=== PATIENT | female | born 1945 | race Caucasian/White ===

== ENCOUNTER 2020-07-10 09:16 | Emergency (ER) | payer MEDICARE ==
[2020-07-10] MEDS ORDERED: Dextrose 50% Abboject 50 ML SYRINGE ONE (09:29)
[2020-07-10 09:47] LABS: #Lymphocytes 0.8 thou/uL (1.20-3.40); #Monocytes 0.8 thou/uL (0.11-0.59); #Neutrophils 5.8 thou/uL (1.40-6.50); %Basophils 0.4 % (0.0-1.0); %Lymphocytes 10.9 % (21.0-51.0); %Monocytes 10.6 % (0.0-10.0); %Neutrophils 78.2 % (42.0-75.0); Hemoglobin 11.1 g/dL (12.0-16.0); Mean Corpuscular HGB CONC 32.1 g/dL (32.0-36.0); Mean Corpuscular Hemoglobin 29.1 pg (27.0-31.0); Mean Corpuscular Volume 90.7 fL (78.0-98.0); Mean Platelet Volume 7.1 fL (7.4-10.4); Platelet Count 238 thou/uL (130-400); RBC Distribution Width 12.4 % (11.5-14.5); Red Blood Cell (RBC) Count 3.83 mill/uL (4.20-5.40); White Blood Cell (WBC) Count 7.4 thou/uL (4.8-10.8)
[2020-07-10 09:54] LABS: Bilirubin Negative (Negative); Blood, Urine Trace (Negative); Clarity Cloudy (Clear); Glucose, Urine (Dipstick) Negative (Negative); Ketone, Urine 15 mg/dL (Negative); Leukocyte Negative (Negative); Nitrite Negative (Negative); Protein, Urine (Dipstick) > or equal to 300 mg/dL (Neg-Trace); Specific Gravity, Urine 1.025 (1.005-1.030); Urobilinogen 0.2 mg/dL (Less than 2); pH, Urine 5.5 (5.0-9.0)
[2020-07-10 10:00] LABS: RBC/HPF 0-3 HPF (0-3)
[2020-07-10 10:01] LABS: Bacteria/HPF Rare-Few HPF (None Seen); Squamous Epithelial 0-3 HPF (0-3)
[2020-07-10 10:04] LABS: ALT (SGPT) 11 U/L (8-55); AST (SGOT) 20 U/L (5-34); Albumin 2.9 g/dL (3.4-4.8); Alkaline Phosphatase 49 U/L (40-110); Anion Gap 18 mmol/L (10-20); BUN (Urea Nitrogen) 33 mg/dL (9.8-20.1); Bilirubin, Total 0.3 mg/dL (0.2-1.2); Calc. Creatinine Clearance 0 mL/min (70-130); Calcium 7.4 mg/dL (7.8-10.44); Carbon Dioxide 17 mmol/L (23-31); Chloride 106 mmol/L (98-107); Estimated GFR-MDRD 36; Globulin 2.3 g/dL (2.4-3.5); Glucose 268 mg/dL (83-110); Potassium 4.1 mmol/L (3.5-5.1); Protein, Total 5.2 g/dL (6.0-8.3); Sodium 137 mmol/L (136-145)
[2020-07-10 10:20] LABS: CKMB 1.4 ng/mL (0-6.6)
[2020-07-10] MEDS ORDERED: Lisinopril 20 MG TAB ONE (10:42)
[2020-07-10] MEDS ORDERED: Metoprolol Tartrate 5 MG/5 ML VIAL ONE (10:42)
--- NOTE | 2020-07-10 12:00 | RAD ---
CHEST 1 VIEW: Date: 07/10/2020 INDICATION: Altered mental status. COMPARISON: Prior exam dated 03/31/2013. FINDINGS: No consolidation is evident. Mild cardiomegaly is stable. Vascular calcification of aortic arch is si milar appearing. Scarring within the lingula is stable appearing. Chronic osseous changes are stable. IMPRESSION: No acute abnormality. POS: [facility]
[2020-07-10] MEDS ORDERED: Acetaminophen 500 MG TAB ONE (12:18)
== END 2020-07-10 12:29 | disposition short-term general hospital (02) ==
LOC: NAV ERS 09:16
DX: E11.649 Type 2 diabetes mellitus with hypoglycemia without coma (principal); U07.1 COVID-19; I10 Essential (primary) hypertension; R00.0 Tachycardia, unspecified; K21.9 Gastro-esophageal reflux disease without esophagitis; G35 Multiple sclerosis; Z79.84 Long term (current) use of oral hypoglycemic drugs; Z79.899 Other long term (current) drug therapy
CPT/HCPCS: 36416; 51701; 71045; 80053; 81003; 81015; 82553; 83605; 84484; 85025; 93005; 96374; 96375

== ENCOUNTER 2020-08-24 19:25 | Inpatient (IN) | payer MEDICARE ==
[2020-08-24] MEDS ORDERED: Nitroglycerin 0.4 MG TAB (25 Tab Bottle) SL PRN (21:35)
[2020-08-24] MEDS ORDERED: Ondansetron ODT 4 MG TAB PO PRN (21:35)
[2020-08-25 05:51] LABS: Band 4 % (5-11); Crenated RBC SLIGHT = 1-5 cells (100X) (None Seen); Hemoglobin 9.3 g/dL (12.0-16.0); Lymphocytes 10 % (21-51); MDiff Complete? YES; Mean Corpuscular Hemoglobin 30.3 pg (27.0-31.0); Mean Platelet Volume 7.1 fL (7.4-10.4); Microcytosis MODERATE=15-30 cells (100X) (0-5/hpf); Monocytes 8 % (0-10); Neutrophil 76 % (42-75); Platelet Count 215 thou/uL (130-400); Platelet Morphology Comment Appears Adequate; Poikilocytosis MODERATE=16-30 cells (100X) (0-5/hpf); RBC Distribution Width 14.3 % (11.5-14.5); Reactive Lymphocytes 2 % (0-10); Red Blood Cell (RBC) Count 3.06 mill/uL (4.20-5.40); Spherocytes SLIGHT = 1-5 cells (100X) (None Seen); White Blood Cell (WBC) Count 8.4 thou/uL (4.8-10.8)
[2020-08-25 05:55] LABS: ALT (SGPT) 12 U/L (8-55); AST (SGOT) 9 U/L (5-34); Albumin 2.7 g/dL (3.4-4.8); Alkaline Phosphatase 78 U/L (40-110); Anion Gap 12 mmol/L (10-20); BUN (Urea Nitrogen) 12 mg/dL (9.8-20.1); Bilirubin, Total 0.3 mg/dL (0.2-1.2); Calc. Creatinine Clearance 49 mL/min (70-130); Calcium 7.8 mg/dL (7.8-10.44); Carbon Dioxide 28 mmol/L (23-31); Chloride 103 mmol/L (98-107); Globulin 2.5 g/dL (2.4-3.5); Glucose 231 mg/dL (83-110); Potassium 3.4 mmol/L (3.5-5.1); Protein, Total 5.2 g/dL (6.0-8.3); Sodium 140 mmol/L (136-145)
[2020-08-25] MEDS ORDERED: Dextrose 50% Abboject 50 ML SYRINGE SLOW IVP PRN (07:34)
[2020-08-25] MEDS: metFORMIN 500 MG TAB PO SCH ×2 (08:23→16:10)
[2020-08-25] MEDS: Amlodipine 5 MG TAB PO SCH (08:23)
[2020-08-25] MEDS: Furosemide 40 MG TAB PO SCH (08:23)
[2020-08-25] MEDS: Lidocaine 5% Patch TD SCH (08:23)
[2020-08-25] MEDS: Glimepiride 2 MG TAB PO SCH ×2 (08:24→16:10)
[2020-08-25] MEDS: Docusate 100 MG CAP PO SCH ×2 (08:24→20:23)
[2020-08-25] MEDS: Losartan 25 MG TAB PO SCH (08:24)
[2020-08-25] MEDS: Apixaban 2.5 MG TAB PO SCH ×2 (08:24→20:23)
[2020-08-25] MEDS: Aspirin Chewable 81 MG TAB PO SCH (08:24)
[2020-08-25] MEDS ORDERED: FLU VACC QS2020-21(65YR UP)/PF 240 MCG/0.7 ML SYRINGE IM ONE (09:00)
[2020-08-25] MEDS ORDERED: Apixaban 2.5 MG TAB PO SCH (09:00)
[2020-08-25] MEDS ORDERED: Metoprolol Tartrate 50 MG TAB PO SCH (09:00)
[2020-08-25] MEDS ORDERED: Non-Formulary Item 1 EACH (Amlodipine [Norvasc] 10 MG Tab) PO SCH (09:00)
[2020-08-25] MEDS: HumaLOG 300 UNITS/3 ML VIAL SC PRN ×2 (11:44→16:14)
[2020-08-25] MEDS: Acetaminophen 325 MG TAB PO PRN (16:09)
[2020-08-25] MEDS: Metoprolol Tartrate 50 MG TAB PO SCH (20:24)
[2020-08-25] MEDS: Atorvastatin Calcium 40 MG TAB PO SCH (20:24)
[2020-08-25] MEDS: Lidocaine Patch Removal 1 EACH TOP SCH (20:25)
[2020-08-26] MEDS: Losartan 25 MG TAB PO SCH (09:40)
[2020-08-26] MEDS: metFORMIN 500 MG TAB PO SCH ×2 (09:44→17:49)
[2020-08-26] MEDS: Aspirin Chewable 81 MG TAB PO SCH (09:45)
[2020-08-26] MEDS: Amlodipine 5 MG TAB PO SCH (09:45)
[2020-08-26] MEDS: Apixaban 2.5 MG TAB PO SCH ×2 (09:45→21:07)
[2020-08-26] MEDS: Glimepiride 2 MG TAB PO SCH ×2 (09:45→17:49)
[2020-08-26] MEDS: Metoprolol Tartrate 50 MG TAB PO SCH ×2 (09:46→21:07)
[2020-08-26] MEDS: Furosemide 40 MG TAB PO SCH (09:46)
[2020-08-26] MEDS: Lidocaine 5% Patch TD SCH (09:47)
[2020-08-26] MEDS: Docusate 100 MG CAP PO SCH ×2 (09:47→21:07)
[2020-08-26] MEDS: HumaLOG 300 UNITS/3 ML VIAL SC PRN (11:51)
--- NOTE | 2020-08-26 20:02 | PRG ---
DATE OF SERVICE: 08/25/2020 SUBJECTIVE: The patient is sitting up in bed, eating. No complaints of shortness of breath, weakness, or cough, only complaining of soreness in her chest in the site of CPR. She feels she is ready for therapy today and has been evaluated with no chest pain or shortness of breath. OBJECTIVE: VITAL SIGNS: Temperature is 97, pulse 104, respirations 20, O2 sats 96% on 2 L, and blood pressure 166/75. LUNGS: Clear, only few crackles in the bases. CARDIAC: Showed regular rhythm. No gallops or murmurs. ABDOMEN: Soft and nontender with no masses or organomegaly. SKIN/EXTREMITIES: Showed no edema, clubbing, or cyanosis. LABORATORY DATA: Shows white count 8400, hematocrit 28, and hemoglobin 9. Sodium 140, potassium 3.4, chloride 103, bicarb 28, BUN 12, creatinine 0.9, glucose 231, protein 5.2, and albumin 2.7. ASSESSMENT: 1. Peripheral vascular disease status post cardiac arrest with combined systolic and diastolic heart failure stabilizing on medications and will continue to monitor and titrate blood pressure control. Monitor for any significant arrhythmias or shortness of breath during therapy. 2. Type 2 diabetes, on prehospitalization medications plus sliding scale with only fair control. We will monitor and may need to titrate up, although does appear to be improving since admission. 3. Multiple sclerosis, chronic and stable, but debilitating and may limit therapy or monitor closely. 4. Possible aspiration pneumonia. Appears to be eating well, but will get speech therapy. Job ID: [id number]
[2020-08-26] MEDS: Atorvastatin Calcium 40 MG TAB PO SCH (21:06)
[2020-08-26] MEDS: Acetaminophen 325 MG TAB PO PRN (21:08)
[2020-08-26] MEDS: Lidocaine Patch Removal 1 EACH TOP SCH (21:09)
[2020-08-27] MEDS: Lidocaine 5% Patch TD SCH (08:22)
[2020-08-27] MEDS: Amlodipine 5 MG TAB PO SCH (08:24)
[2020-08-27] MEDS: Furosemide 40 MG TAB PO SCH (08:24)
[2020-08-27] MEDS: metFORMIN 500 MG TAB PO SCH ×2 (08:24→17:09)
[2020-08-27] MEDS: Glimepiride 2 MG TAB PO SCH ×2 (08:24→17:08)
[2020-08-27] MEDS: Metoprolol Tartrate 50 MG TAB PO SCH ×2 (08:25→21:11)
[2020-08-27] MEDS: Aspirin Chewable 81 MG TAB PO SCH (08:25)
[2020-08-27] MEDS: Apixaban 2.5 MG TAB PO SCH ×2 (08:25→21:11)
[2020-08-27] MEDS: Docusate 100 MG CAP PO SCH ×2 (08:30→21:12)
[2020-08-27] MEDS: Losartan 25 MG TAB PO SCH (08:30)
--- NOTE | 2020-08-27 20:02 | PRG ---
DATE OF SERVICE: 08/26/2020 SUBJECTIVE: Ms. Hutchison just returning from therapy. She is ambulating with the help of a walker. She denies any questions or concerns. No family at bedside. OBJECTIVE: VITAL SIGNS: She is afebrile, heart rate 98, respirations 18, oxygen saturation 99% on 2 L, blood pressure 161/77. CARDIOVASCULAR SYSTEM: S1, S2 plus. RESPIRATORY SYSTEM: Normal vesicular breath sounds with crackles in the bases. ABDOMEN: Soft, nontender. EXTREMITIES: Without cyanosis, clubbing. Trace edema. CENTRAL NERVOUS SYSTEM: Generalized weakness. IMPRESSION: 1. Peripheral vascular disease. 2. Chronic combined congestive heart failure. 3. Diabetes mellitus type 2. 4. Multiple sclerosis. 5. Deconditioning. PLAN: 1. Continue current medications. 2. 1800 calorie heart healthy ADA diet. 3. Blood sugars are 112 and 141. 4. Accu-Cheks with sliding scale coverage. 5. Monitor blood pressure and adjust medications as needed. 6. Physical therapy. 7. Routine laboratory values. Job ID: [id number]
[2020-08-27] MEDS: Atorvastatin Calcium 40 MG TAB PO SCH (21:11)
[2020-08-27] MEDS: Lidocaine Patch Removal 1 EACH TOP SCH (21:12)
[2020-08-28] MEDS: Amlodipine 5 MG TAB PO SCH (08:13)
[2020-08-28] MEDS: Furosemide 40 MG TAB PO SCH (08:13)
[2020-08-28] MEDS: metFORMIN 500 MG TAB PO SCH ×2 (08:13→17:03)
[2020-08-28] MEDS: Glimepiride 2 MG TAB PO SCH (08:13)
[2020-08-28] MEDS: Apixaban 2.5 MG TAB PO SCH ×2 (08:14→20:25)
[2020-08-28] MEDS: Losartan 25 MG TAB PO SCH (08:15)
[2020-08-28] MEDS: Docusate 100 MG CAP PO SCH ×2 (08:15→20:24)
[2020-08-28] MEDS: Lidocaine 5% Patch TD SCH (08:15)
[2020-08-28] MEDS: Aspirin Chewable 81 MG TAB PO SCH (08:15)
[2020-08-28] MEDS: Metoprolol Tartrate 50 MG TAB PO SCH ×2 (08:16→20:23)
[2020-08-28] MEDS: Acetaminophen 325 MG TAB PO PRN (08:17)
--- NOTE | 2020-08-28 10:05 | RAD ---
PORTABLE FRONTAL CHEST RADIOGRAPH: DATE: 08/28/2020. COMPARISON: 08/18/2020. HISTORY: Productive cough. FINDINGS: There is nonspecific mild linear increased density within the right lung base in the region of the co stophrenic angle. There is nonspecific focal pleural and parenchymal opacity within the left lung ba se which has improved when compared to 08/18/2020. No pneumothorax is seen. Previously noted left-s ided vascular catheter has been removed. IMPRESSION: There is increased density in both lung bases, left greater than right, suggesting mild airspace dise ase and pleural fluid, particularly on the left. This has improved when compared to 08/18/2020 but s ignificant residual pleural and parenchymal opacity is noted in the left base. Etiology is uncertain . This could be related to infectious pneumonitis, aspiration, etc. Followup to resolution is advis ed to exclude an underlying left basilar pulmonary mass. POS: [facility]
[2020-08-28] MEDS: HumaLOG 300 UNITS/3 ML VIAL SC PRN (11:37)
[2020-08-28] MEDS: Atorvastatin Calcium 40 MG TAB PO SCH (20:26)
[2020-08-28] MEDS: Lidocaine Patch Removal 1 EACH TOP SCH (20:29)
[2020-08-29] MEDS: Docusate 100 MG CAP PO SCH (07:56)
[2020-08-29] MEDS: Losartan 25 MG TAB PO SCH (07:57)
[2020-08-29] MEDS: Amlodipine 5 MG TAB PO SCH (07:57)
[2020-08-29] MEDS: Apixaban 2.5 MG TAB PO SCH (07:58)
[2020-08-29] MEDS: Metoprolol Tartrate 50 MG TAB PO SCH (07:58)
[2020-08-29] MEDS: Glimepiride 2 MG TAB PO SCH (07:58)
[2020-08-29] MEDS: Aspirin Chewable 81 MG TAB PO SCH (07:58)
[2020-08-29] MEDS: metFORMIN 500 MG TAB PO SCH ×2 (07:59→17:00)
[2020-08-29] MEDS: Furosemide 40 MG TAB PO SCH (07:59)
[2020-08-29] MEDS: Lidocaine 5% Patch TD SCH (08:04)
--- NOTE | 2020-08-29 08:20 | PRG ---
DATE OF SERVICE: 08/28/2020 SUBJECTIVE: The patient is sitting up in bed, feels well, visiting with her son, ready to do therapy, but states that is much stronger, but is not back to her baseline of being able to transfer without assistance. She has been found to have low sugar to 59 yesterday morning and she is taking a significant amount glimepiride, so this dose will be decreased from 4 mg to 2 mg. She will be continued on metformin and monitor. She is having no chest pain site of the CPR. No shortness of breath. No similar symptoms to her admission. OBJECTIVE: VITAL SIGNS: Showed her to have pulse 98, blood pressure 146/64, O2 saturation 93% on room air, pulse 103, temperature 97.9. LABORATORY DATA: Accu-Cheks as above. Recent potassium is 3.4, BUN 12, creatinine 0.94, total bilirubin 0.3, albumin 2.7. ASSESSMENT: 1. Stable multiple sclerosis. 2. Labile diabetes with episodes of hypoglycemia on increased glimepiride and we will decrease dose and monitor. 3. Status post recent cardiac arrest with complete heart block appeared to resolve with slowly increasing strength with ejection fraction of 35%-40% and diagnosis of systolic and diastolic heart failure. 4. Hypertension, stable. PLAN: 1. Decrease glimepiride 2 mg daily. 2. Continue PT/OT. 3. Continue to monitor vital signs closely. 4. Repeat labs in a.m. 5. Continue to monitor for signs of angina. 6. Repeat BNP. 7. Continue rate control and anticoagulation of paroxysmal atrial fibrillation. Job ID: [id number]
--- NOTE | 2020-08-29 09:51 | HP ---
HISTORY OF PRESENT ILLNESS: The patient is a 74-year-old white female with a history of type 2 diabetes, multiple sclerosis, who presented to the [facility] on August 14 with complaints of shortness of breath. She has had a previous history of COVID-19 pneumonia admitted to [facility] in June with acute metabolic encephalopathy. She apparently improved and was sent home, but when she presented at this time, she was in significant congestive heart failure with orthopnea, bibasilar crackles, elevated troponin, elevated BNP to 3500, but EKG only showed normal sinus rhythm and ST depression. She was treated with nitroglycerin initially with improvement of her symptoms, but shortly afterwards, she had onset of chest pain, diaphoresis, nausea and subsequently had a cardiac arrest requiring CPR. She responded to epinephrine, atropine and dopamine drip, intubated, transferred to the ICU. She was subsequently evaluated with a coronary arteriogram, which showed narrowing of the left main coronary as well as triple-vessel disease. She was found to have complete heart block. She was felt however to require medical treatment with an angioplasty of the right coronary artery and several weeks. Her ejection fraction was found to be stable at 45% to 50%. She was quickly taken off the ventilator and slowly began to improve increasing strength. She did develop an episode of atrial fibrillation, which normalized, but she was continued on anticoagulation with apixaban. Her diabetes was controlled in the hospital as was her hypertension. Her multiple sclerosis is essentially a remote diagnosis with significant weakness and inability to walk for years, but on no treatment with no exacerbations and it appeared to be stable. She began to work with therapy, was felt to be too weak, however, consider coronary bypass graft or stent and therefore was transferred to [facility] for strengthening. PAST MEDICAL HISTORY: Otherwise was positive only for gastroesophageal reflux, in addition to hypertension, diabetes, multiple sclerosis. PAST SURGICAL HISTORY: Positive for cholecystectomy, hysterectomy, left femoral neck surgery, . SOCIAL HISTORY: She lives with her son. She is a nonsmoker, nondrinker. REVIEW OF SYSTEMS: HEENT: She denies any headaches, change in vision or hearing, hoarseness, or dysphagia. PULMONARY: She denies any cough, sputum production, pneumonia, asthma or tuberculosis. CARDIOVASCULAR: She only complains of chest pain at the site of CPR with none of the previous significant dyspnea or nausea. She has no palpitation. GASTROINTESTINAL: She denies nausea, vomiting, diarrhea, constipation, abdominal pain. GENITOURINARY: She denies dysuria, hematuria, nocturia. MUSCULOSKELETAL: As stated above, she has significant weakness in both legs and does not walk, ambulates with a wheelchair and transfers to wheelchair to bed commode. MEDICATIONS: On transfer include: 1. Tylenol 650 mg as needed. 2. Amitriptyline 50 mg nightly. 3. Amlodipine 10 mg daily. 4. Apixaban 2.5 mg twice daily. 5. Aspirin 81 mg daily. 6. Atorvastatin 80 mg nightly. 7. Furosemide 40 mg daily. 8. Glimepiride 4 mg twice daily. 9. Lidocaine patch to the chest for soreness daily. 10. Losartan 100 mg daily. 11. Metformin 1000 mg twice daily. 12. Metoprolol 75 mg twice daily. PHYSICAL EXAMINATION: VITAL SIGNS: Showed her to have blood pressure of 150/73, temperature 98.5, pulse 104, respirations 20, O2 sats 93% on room air. HEENT: Pupils are equal, round, and reactive to light and accommodation. Sclerae anicteric. Conjunctivae are pale. Oral mucous membranes well hydrated. NECK: Supple. No nodes or masses. JVP is not elevated. LUNGS: Show few crackles in the bases. CARDIAC: Displays regular rhythm. No gallops or murmurs. ABDOMEN: Soft and nontender with no masses or organomegaly. SKIN: Extremities display trace edema. No clubbing, cyanosis. NEUROLOGIC: Shows no focal findings. Cranial nerves intact. Deep tendon reflex 2+ and equal, but diffuse generalized weakness. LABORATORY DATA: Most recent laboratory showed white count of 9900, hematocrit 34, hemoglobin 10. ASSESSMENT: A 74-year-old white female with a long history of type 2 diabetes, multiple sclerosis, hypertension, who has been found to have diffuse triple-vessel coronary disease after developing an acute congestive heart failure with cardiac arrest and complete heart block. She has responded to medical treatment, but has been found to be non-surgical candidate at this time, because of her diffuse weakness. She is therefore admitted to [facility] for strengthening and monitoring her cardiopulmonary status in preparation for possible angioplasty of the right coronary artery in the next several weeks. She previously was only wheelchair-bound in transfers and this will be our goal. She has had no symptoms of angina, shortness of breath since an admission, but is very weak. She is a full code. Type 2 diabetes has been apparently fairly well controlled on oral medications at home, although high dose glimepiride will be continued on this and monitor with Accu-Cheks sliding scale. Her hypertension appears to be stable on lisinopril and metoprolol and we will continue these medications and monitor her congestive heart failure, combination of systolic and diastolic and will be continued on treatment and monitored closely with continued diuresis and we will repeat BNP, most recent was immediately post cardiac arrest and significantly elevated at 2500. Job ID: [id number]
[2020-08-29 10:12] LABS: #Basophils 0.1 thou/uL (0.0-0.2); #Eosinphils 0.2 thou/uL (0.0-0.7); #Lymphocytes 1.5 thou/uL (1.20-3.40); #Monocytes 0.5 thou/uL (0.11-0.59); #Neutrophils 7.1 thou/uL (1.40-6.50); %Basophils 1.4 % (0.0-1.0); %Eosinophils 2.4 % (0.0-10.0); %Lymphocytes 16.5 % (21.0-51.0); %Monocytes 5.3 % (0.0-10.0); %Neutrophils 75.2 % (42.0-75.0); Hemoglobin 10.4 g/dL (12.0-16.0); Mean Corpuscular HGB CONC 32.2 g/dL (32.0-36.0); Mean Corpuscular Hemoglobin 29.6 pg (27.0-31.0); Mean Corpuscular Volume 91.9 fL (78.0-98.0); Mean Platelet Volume 6.9 fL (7.4-10.4); Platelet Count 333 thou/uL (130-400); RBC Distribution Width 13.9 % (11.5-14.5); White Blood Cell (WBC) Count 9.5 thou/uL (4.8-10.8)
[2020-08-29 10:21] LABS: ALT (SGPT) 12 U/L (8-55); AST (SGOT) 13 U/L (5-34); Albumin 3.2 g/dL (3.4-4.8); Alkaline Phosphatase 103 U/L (40-110); Anion Gap 16 mmol/L (10-20); BUN (Urea Nitrogen) 20 mg/dL (9.8-20.1); Bilirubin, Total 0.3 mg/dL (0.2-1.2); Calc. Creatinine Clearance 41 mL/min (70-130); Calcium 8.5 mg/dL (7.8-10.44); Carbon Dioxide 28 mmol/L (23-31); Chloride 100 mmol/L (98-107); Globulin 2.8 g/dL (2.4-3.5); Glucose 236 mg/dL (83-110); Potassium 3.7 mmol/L (3.5-5.1); Sodium 140 mmol/L (136-145)
--- NOTE | 2020-08-29 10:48 | PRG ---
DATE OF SERVICE: 08/29/2020 SUBJECTIVE: The patient feels well, working with therapy, able to transfer with minimal assist from her chair to the bedside commode with no dyspnea or chest pain. OBJECTIVE: VITAL SIGNS: Shows her temperature is 97.8, pulse 90, respirations 20, O2 sats 94% on room air, blood pressure 132/79. LUNGS: Clear. CARDIAC: Shows regular rhythm. ABDOMEN: Soft, nontender. DIAGNOSTIC STUDIES: LABORATORY RESULTS: White count 9500, hematocrit 32, hemoglobin 10. Sodium 140, potassium 3.7, chloride 100, bicarb 28, BUN 20, creatinine 1.12, glucose 236 on decreased glimepiride, AST 13, ALT 12, albumin up to 3.2. ASSESSMENT: 1. Resolving deconditioning. 2. Labile diabetes with increased hypoglycemia, now that glimepiride decreased. 3. Ischemic cardiomyopathy with ejection fraction of 35%, status post recent cardiac arrest, cardiac block, improving greatly, stable vital signs. No dyspnea or chest pain. 4. Hypertension, stable. 5. Paroxysmal atrial fibrillation, no evidence of recurrence. PLAN: 1. May need to increase glimepiride monitor today, sliding scale. 2. Continue PT, OT. 3. Discontinue [place]. 4. Continue to monitor vital signs closely and monitor for signs of angina. 5. Repeat BNP today. 6. Continue to monitor oral intake. Job ID: [id number]
[2020-08-30] MEDS: Atorvastatin Calcium 40 MG TAB PO SCH ×2 (05:02→20:47)
[2020-08-30] MEDS: Docusate 100 MG CAP PO SCH ×3 (05:02→20:48)
[2020-08-30] MEDS: Lidocaine Patch Removal 1 EACH TOP SCH ×2 (05:02→20:48)
[2020-08-30] MEDS: Apixaban 2.5 MG TAB PO SCH ×3 (05:02→20:48)
[2020-08-30] MEDS: Metoprolol Tartrate 50 MG TAB PO SCH ×3 (05:03→20:46)
[2020-08-30] MEDS: Losartan 25 MG TAB PO SCH (07:58)
[2020-08-30] MEDS: Lidocaine 5% Patch TD SCH (07:58)
[2020-08-30] MEDS: Glimepiride 2 MG TAB PO SCH (07:59)
[2020-08-30] MEDS: metFORMIN 500 MG TAB PO SCH ×2 (08:00→17:29)
[2020-08-30] MEDS: Amlodipine 5 MG TAB PO SCH (08:02)
[2020-08-30] MEDS: Furosemide 40 MG TAB PO SCH (08:03)
[2020-08-30] MEDS: Aspirin Chewable 81 MG TAB PO SCH (08:05)
[2020-08-30] MEDS: HumaLOG 300 UNITS/3 ML VIAL SC PRN ×2 (12:03→17:28)
[2020-08-31] MEDS: Lidocaine 5% Patch TD SCH (08:38)
[2020-08-31] MEDS: Metoprolol Tartrate 50 MG TAB PO SCH ×2 (08:38→20:30)
[2020-08-31] MEDS: Amlodipine 5 MG TAB PO SCH (08:38)
[2020-08-31] MEDS: metFORMIN 500 MG TAB PO SCH ×2 (08:38→16:44)
[2020-08-31] MEDS: Aspirin Chewable 81 MG TAB PO SCH (08:39)
[2020-08-31] MEDS: Furosemide 40 MG TAB PO SCH (08:39)
[2020-08-31] MEDS: Glimepiride 2 MG TAB PO SCH (08:39)
[2020-08-31] MEDS: Losartan 25 MG TAB PO SCH (08:39)
[2020-08-31] MEDS: Apixaban 2.5 MG TAB PO SCH ×2 (08:39→20:29)
[2020-08-31] MEDS: Docusate 100 MG CAP PO SCH ×2 (08:40→20:31)
[2020-08-31] MEDS: HumaLOG 300 UNITS/3 ML VIAL SC PRN (11:57)
[2020-08-31 17:33] VITALS: BMI 20.6
[2020-08-31] MEDS: Lidocaine Patch Removal 1 EACH TOP SCH (20:31)
[2020-08-31] MEDS: Atorvastatin Calcium 40 MG TAB PO SCH (20:31)
[2020-09-01] MEDS: HumaLOG 300 UNITS/3 ML VIAL SC PRN ×2 (05:16→12:24)
[2020-09-01] MEDS: Glimepiride 2 MG TAB PO SCH (08:18)
[2020-09-01] MEDS: metFORMIN 500 MG TAB PO SCH ×2 (08:18→17:21)
[2020-09-01] MEDS: Furosemide 40 MG TAB PO SCH (08:18)
[2020-09-01] MEDS: Docusate 100 MG CAP PO SCH ×2 (08:19→20:40)
[2020-09-01] MEDS: Aspirin Chewable 81 MG TAB PO SCH (08:19)
[2020-09-01] MEDS: Amlodipine 5 MG TAB PO SCH (08:19)
[2020-09-01] MEDS: Apixaban 2.5 MG TAB PO SCH ×2 (08:19→20:39)
[2020-09-01] MEDS: Losartan 25 MG TAB PO SCH (08:20)
[2020-09-01] MEDS: Lidocaine 5% Patch TD SCH (08:20)
[2020-09-01] MEDS: Metoprolol Tartrate 50 MG TAB PO SCH ×2 (08:24→20:39)
[2020-09-01] MEDS: Atorvastatin Calcium 40 MG TAB PO SCH (20:38)
[2020-09-01] MEDS: Lidocaine Patch Removal 1 EACH TOP SCH (20:40)
[2020-09-02] MEDS: Amlodipine 5 MG TAB PO SCH (08:27)
[2020-09-02] MEDS: Glimepiride 2 MG TAB PO SCH (08:27)
[2020-09-02] MEDS: Furosemide 40 MG TAB PO SCH (08:27)
[2020-09-02] MEDS: metFORMIN 500 MG TAB PO SCH ×2 (08:27→17:29)
[2020-09-02] MEDS: Losartan 25 MG TAB PO SCH (08:28)
[2020-09-02] MEDS: Apixaban 2.5 MG TAB PO SCH ×2 (08:28→20:40)
[2020-09-02] MEDS: Lidocaine 5% Patch TD SCH (08:28)
[2020-09-02] MEDS: Aspirin Chewable 81 MG TAB PO SCH (08:28)
[2020-09-02] MEDS: Metoprolol Tartrate 50 MG TAB PO SCH ×2 (08:30→20:40)
[2020-09-02] MEDS: Docusate 100 MG CAP PO SCH ×2 (09:33→20:41)
[2020-09-02] MEDS: Atorvastatin Calcium 40 MG TAB PO SCH (20:41)
[2020-09-02] MEDS: Lidocaine Patch Removal 1 EACH TOP SCH (20:41)
--- NOTE | 2020-09-02 21:25 | PRG ---
DATE OF SERVICE: 08/31/2020 SUBJECTIVE: The patient feels well, resting in bed, ready for more therapy next week, is eating well. No complaints. OBJECTIVE: VITAL SIGNS: Show Accu-Cheks from 141 to 189. Blood pressure is 156/72, temperature is 98, pulse is 99, respirations are 18, O2 saturations 95% on room air. LUNGS: Clear. CARDIAC EXAM: Showed regular rhythm. ABDOMEN: Soft and nontender. EXTREMITIES: Show no edema, clubbing, or cyanosis Neurological: Intact. ASSESSMENT: 1. Stable ischemic cardiomyopathy, status post cardiac arrest, improving daily with PT. 2. Type 2 diabetes, controlled to goal with Accu-Cheks and sliding scale. 3. Deconditioning, improving greatly. 4. Hypertension, controlled to goal. PLAN: 1. Continue PT, OT. 2. Continue metformin and sliding scale sliding scale soon. 3. Continue diuretic and repeat BMP in the next several days. Job ID: [id number]
--- NOTE | 2020-09-02 21:29 | PRG ---
DATE OF SERVICE: 08/30/2020 SUBJECTIVE: The patient feels well, resting in the bed, getting stronger, and is ready for more therapy next week. She is denying any chest pain or shortness of breath. She is eating very well. OBJECTIVE: VITAL SIGNS: Show her temperature is 97.7, pulse 97, respirations 18, O2 sats 98% on room air, blood pressure 166/71. Accu-Cheks ranged from 129 to 187. LUNGS: Clear. CARDIAC: Showed regular rhythm. ABDOMEN: Soft and nontender. ASSESSMENT: 1. Improved diabetic control on decreased glimepiride. 2. Resolving deconditioning. 3. Stable ischemic cardiomyopathy, status post recent cardiac arrest with increasing strength and stable vital signs. 4. Paroxysmal atrial fibrillation, no evidence of recurrence. 5. Hypertension, stable. PLAN: 1. Continue PT/OT. 2. Continue Accu-Cheks to monitor and titrate and control diabetes. 3. Continue to monitor vital signs closely during therapy. 4. Continue to monitor oral intake. Job ID: [id number]
--- NOTE | 2020-09-02 21:47 | PRG ---
DATE OF SERVICE: 09/02/2020 SUBJECTIVE: The patient feels well, excited, being discharged tomorrow. OBJECTIVE: Vital Signs: Show pulse 92, respirations 18, O2 sats 99% on room air, blood pressure 141/66. LUNGS: Clear. CARDIAC: Examination showed regular rhythm. ABDOMEN: Soft, nontender. ASSESSMENT: 1. Ischemic cardiomyopathy, improving greatly, ready for discharge tomorrow. 2. Type 2 diabetes, controlled to goal. 3. Deconditioning, improved greatly. PLAN: BMP in the a.m. and discharge in the a.m. Job ID: [id number]
[2020-09-03 06:12] LABS: Anion Gap 16 mmol/L (10-20); BUN (Urea Nitrogen) 25 mg/dL (9.8-20.1); Calc. Creatinine Clearance 37 mL/min (70-130); Calcium 7.8 mg/dL (7.8-10.44); Carbon Dioxide 25 mmol/L (23-31); Chloride 106 mmol/L (98-107); Glucose 127 mg/dL (83-110); Potassium 4.2 mmol/L (3.5-5.1); Sodium 143 mmol/L (136-145)
[2020-09-03] MEDS ORDERED: Glimepiride 2 MG TAB PO SCH (07:30)
[2020-09-03 08:16] VITALS: BP 172/74; TEMP 97.6
[2020-09-03] MEDS ORDERED: Metoprolol Tartrate 25 MG TAB PO SCH (09:00)
[2020-09-03] MEDS: Lidocaine 5% Patch TD SCH (09:19)
[2020-09-03] MEDS: Apixaban 2.5 MG TAB PO SCH (09:20)
[2020-09-03] MEDS: Furosemide 40 MG TAB PO SCH (09:20)
[2020-09-03] MEDS: metFORMIN 500 MG TAB PO SCH (09:20)
[2020-09-03] MEDS: Docusate 100 MG CAP PO SCH (09:20)
[2020-09-03] MEDS: Aspirin Chewable 81 MG TAB PO SCH (09:21)
[2020-09-03] MEDS: Amlodipine 5 MG TAB PO SCH (09:22)
[2020-09-03] MEDS: Losartan 25 MG TAB PO SCH (09:22)
== END 2020-09-03 11:30 | disposition home health service (06) | DRG 948 ==
LOC: UNDOADMIN 19:25 → NAV ACUTE 19:25
PROVIDERS: ADMIT Internal Medicine; ATTEND Internal Medicine
DX: R53.1 Weakness (principal); I50.42 Chronic combined systolic (congestive) and diastolic (congestive) heart failure; R53.81 Other malaise; I25.5 Ischemic cardiomyopathy; E11.9 Type 2 diabetes mellitus without complications; G35 Multiple sclerosis; I73.9 Peripheral vascular disease, unspecified; I48.0 Paroxysmal atrial fibrillation; I11.0 Hypertensive heart disease with heart failure; K21.9 Gastro-esophageal reflux disease without esophagitis; Z90.49 Acquired absence of other specified parts of digestive tract; Z90.710 Acquired absence of both cervix and uterus
CPT/HCPCS: 36415; 36416; 71045; 80048; 80053; 83880; 85007; 85025; 85027

== ENCOUNTER 2022-02-16 16:40 | Inpatient (IN) | payer MEDICARE ==
[2022-02-16] MEDS ORDERED: Nitroglycerin 0.4 MG TAB (25 Tab Bottle) SL PRN (17:31)
[2022-02-16] MEDS ORDERED: Melatonin 3 MG TAB PO PRN (17:31)
[2022-02-16] MEDS ORDERED: Ondansetron ODT 4 MG TAB PO PRN (17:34)
[2022-02-16] MEDS: Acetaminophen 500 MG TAB PO SCH (18:29)
[2022-02-16] MEDS: Mirtazapine 15 MG Soltab SL SCH (21:21)
[2022-02-16] MEDS: cloNIDine 0.1 MG TAB PO SCH (21:21)
[2022-02-16] MEDS: Atorvastatin Calcium 40 MG TAB PO SCH (21:22)
[2022-02-16] MEDS: Apixaban 2.5 MG TAB PO SCH (21:22)
[2022-02-16] MEDS: Ascorbic Acid 500 mg Chewable Tablet PO SCH (21:22)
[2022-02-16] MEDS: traZODone HCl 50 MG TAB PO SCH (21:22)
[2022-02-16] MEDS: Senokot S 8.6-50 MG TAB PO SCH (21:23)
[2022-02-16] MEDS: Ferrous Sulfate 325 MG TAB PO SCH (21:23)
[2022-02-16] MEDS: Gabapentin 100 MG CAP PO SCH (21:23)
[2022-02-16] MEDS: Metoprolol Tartrate 50 MG TAB PO SCH (21:23)
[2022-02-16] MEDS ORDERED: Dextrose 50% Abboject 50 ML SYRINGE SLOW IVP PRN (22:20)
[2022-02-16] MEDS ORDERED: HumaLOG 300 UNITS/3 ML VIAL SC PRN (22:30)
[2022-02-16] MEDS ORDERED: Dextrose 5% in Water 1,000 ML IV PRN (22:30)
[2022-02-17] MEDS: Acetaminophen 500 MG TAB PO SCH ×3 (00:16→12:41)
[2022-02-17] MEDS: traMADol HCl 50 MG TAB PO SCH ×2 (04:14→16:03)
[2022-02-17 06:32] LABS: #Basophils 0.1 thou/uL (0.0-0.2); #Eosinphils 0.3 thou/uL (0.0-0.7); #Lymphocytes 1.1 thou/uL (1.20-3.40); #Monocytes 0.9 thou/uL (0.11-0.59); #Neutrophils 7.8 thou/uL (1.40-6.50); %Eosinophils 2.8 % (0.0-10.0); %Lymphocytes 11.1 % (21.0-51.0); %Monocytes 8.6 % (0.0-10.0); %Neutrophils 76.5 % (42.0-75.0); Hemoglobin 7.9 g/dL (12.0-16.0); Mean Corpuscular HGB CONC 30.3 g/dL (32.0-36.0); Mean Corpuscular Hemoglobin 29.9 pg (27.0-31.0); Mean Corpuscular Volume 98.4 fL (78.0-98.0); Mean Platelet Volume 7.3 fL (7.4-10.4); Platelet Count 214 thou/uL (130-400); RBC Distribution Width 13.6 % (11.5-14.5); Red Blood Cell (RBC) Count 2.65 mill/uL (4.20-5.40); White Blood Cell (WBC) Count 10.2 thou/uL (4.8-10.8)
[2022-02-17 06:51] LABS: ALT (SGPT) 9 U/L (8-55); AST (SGOT) 20 U/L (5-34); Albumin 2.5 g/dL (3.4-4.8); Alkaline Phosphatase 62 U/L (40-110); Anion Gap 18 mmol/L (10-20); BUN (Urea Nitrogen) 35 mg/dL (9.8-20.1); Bilirubin, Total 0.5 mg/dL (0.2-1.2); Calc. Creatinine Clearance 30 mL/min (70-130); Calcium 8.5 mg/dL (7.8-10.44); Carbon Dioxide 16 mmol/L (23-31); Chloride 108 mmol/L (98-107); Estimated GFR 33; Globulin 2.4 g/dL (2.4-3.5); Glucose 145 mg/dL (83-110); Potassium 4.5 mmol/L (3.5-5.1); Protein, Total 4.9 g/dL (5.8-8.1); Sodium 137 mmol/L (136-145)
[2022-02-17] MEDS: Cholecalciferol 1,000 UNITS (25 MCG) TAB PO SCH (08:55)
[2022-02-17] MEDS: cloNIDine 0.1 MG TAB PO SCH ×2 (08:56→21:12)
[2022-02-17] MEDS: Cyanocobalamin (Vitamin B-12) 1,000 MCG TAB PO SCH (08:56)
[2022-02-17] MEDS: Ferrous Sulfate 325 MG TAB PO SCH ×2 (08:56→21:11)
[2022-02-17] MEDS: Apixaban 2.5 MG TAB PO SCH ×2 (08:56→21:11)
[2022-02-17] MEDS: Ascorbic Acid 500 mg Chewable Tablet PO SCH ×2 (08:56→21:11)
[2022-02-17] MEDS: Senokot S 8.6-50 MG TAB PO SCH ×2 (08:57→21:11)
[2022-02-17] MEDS: Metoprolol Tartrate 50 MG TAB PO SCH ×2 (08:57→21:13)
[2022-02-17] MEDS: Amlodipine 10 MG TAB PO SCH (08:57)
[2022-02-17] MEDS: Gabapentin 100 MG CAP PO SCH ×3 (08:57→21:11)
[2022-02-17] MEDS: Polyethylene Glycol 3350 17 GM Packet PO SCH (08:58)
[2022-02-17] MEDS: HYDROcodone/Acetaminophen 5/325 mg Tablet PO PRN (09:07)
[2022-02-17] MEDS: HumaLOG 300 UNITS/3 ML VIAL SC PRN (12:31)
[2022-02-17] MEDS ORDERED: Acetaminophen 500 MG TAB PO PRN (17:43)
[2022-02-17] MEDS: Mirtazapine 15 MG Soltab SL SCH (21:11)
[2022-02-17] MEDS: Famotidine 20 MG TAB PO SCH (21:11)
[2022-02-17] MEDS: Atorvastatin Calcium 40 MG TAB PO SCH (21:11)
[2022-02-17] MEDS: traZODone HCl 50 MG TAB PO SCH (21:11)
[2022-02-18] MEDS: traMADol HCl 50 MG TAB PO SCH ×2 (05:06→16:01)
[2022-02-18 06:14] LABS: #Basophils 0.1 thou/uL (0.0-0.2); #Eosinphils 0.4 thou/uL (0.0-0.7); #Lymphocytes 1.5 thou/uL (1.20-3.40); #Monocytes 0.9 thou/uL (0.11-0.59); #Neutrophils 8.5 thou/uL (1.40-6.50); %Basophils 0.8 % (0.0-1.0); %Eosinophils 3.2 % (0.0-10.0); %Lymphocytes 13.5 % (21.0-51.0); %Monocytes 7.7 % (0.0-10.0); %Neutrophils 74.8 % (42.0-75.0); Hemoglobin 8.9 g/dL (12.0-16.0); Mean Corpuscular HGB CONC 30.2 g/dL (32.0-36.0); Mean Corpuscular Hemoglobin 29.4 pg (27.0-31.0); Mean Corpuscular Volume 97.4 fL (78.0-98.0); Mean Platelet Volume 7.1 fL (7.4-10.4); Platelet Count 295 thou/uL (130-400); RBC Distribution Width 14.1 % (11.5-14.5); Red Blood Cell (RBC) Count 3.02 mill/uL (4.20-5.40); White Blood Cell (WBC) Count 11.4 thou/uL (4.8-10.8)
[2022-02-18 06:29] LABS: Anion Gap 19 mmol/L (10-20); BUN (Urea Nitrogen) 39 mg/dL (9.8-20.1); Calc. Creatinine Clearance 32 mL/min (70-130); Calcium 8.4 mg/dL (7.8-10.44); Carbon Dioxide 17 mmol/L (23-31); Chloride 109 mmol/L (98-107); Estimated GFR 35; Glucose 132 mg/dL (83-110); Potassium 4.7 mmol/L (3.5-5.1); Sodium 140 mmol/L (136-145)
[2022-02-18] MEDS: Amlodipine 10 MG TAB PO SCH (08:55)
[2022-02-18] MEDS: Ferrous Sulfate 325 MG TAB PO SCH ×2 (08:56→20:33)
[2022-02-18] MEDS: Gabapentin 100 MG CAP PO SCH ×3 (08:56→20:33)
[2022-02-18] MEDS: Apixaban 2.5 MG TAB PO SCH ×2 (08:56→20:33)
[2022-02-18] MEDS: Metoprolol Tartrate 50 MG TAB PO SCH ×2 (08:57→20:34)
[2022-02-18] MEDS: Ascorbic Acid 500 mg Chewable Tablet PO SCH ×2 (08:57→20:34)
[2022-02-18] MEDS: Cholecalciferol 1,000 UNITS (25 MCG) TAB PO SCH (08:57)
[2022-02-18] MEDS: Senokot S 8.6-50 MG TAB PO SCH ×2 (08:58→20:34)
[2022-02-18] MEDS: Famotidine 20 MG TAB PO SCH (08:58)
[2022-02-18] MEDS: cloNIDine 0.1 MG TAB PO SCH ×2 (08:58→20:34)
[2022-02-18] MEDS: Polyethylene Glycol 3350 17 GM Packet PO SCH (08:58)
[2022-02-18] MEDS: Cyanocobalamin (Vitamin B-12) 1,000 MCG TAB PO SCH (08:58)
[2022-02-18 11:27] LABS: Hemoglobin A1c 5.9 % (4.0-6.0)
[2022-02-18 11:33] LABS: Iron 58 ug/dL (50-170); Iron Binding Capacity, Total 239 mcg/dL (265-497)
[2022-02-18] MEDS: HYDROcodone/Acetaminophen 5/325 mg Tablet PO PRN ×2 (11:33→20:43)
[2022-02-18] MEDS: HumaLOG 300 UNITS/3 ML VIAL SC PRN (11:34)
[2022-02-18] MEDS: Atorvastatin Calcium 40 MG TAB PO SCH (20:32)
[2022-02-18] MEDS: traZODone HCl 50 MG TAB PO SCH (20:33)
[2022-02-18] MEDS: Mirtazapine 15 MG Soltab SL SCH (20:33)
[2022-02-19] MEDS: traMADol HCl 50 MG TAB PO SCH ×2 (05:00→15:56)
[2022-02-19] MEDS: Cyanocobalamin (Vitamin B-12) 1,000 MCG TAB PO SCH (08:49)
[2022-02-19] MEDS: Famotidine 20 MG TAB PO SCH (08:49)
[2022-02-19] MEDS: Gabapentin 100 MG CAP PO SCH ×3 (08:49→20:50)
[2022-02-19] MEDS: Cholecalciferol 1,000 UNITS (25 MCG) TAB PO SCH (08:49)
[2022-02-19] MEDS: cloNIDine 0.1 MG TAB PO SCH ×2 (08:50→20:50)
[2022-02-19] MEDS: Losartan 25 MG TAB PO SCH (08:51)
[2022-02-19] MEDS: Metoprolol Tartrate 50 MG TAB PO SCH ×2 (08:51→20:50)
[2022-02-19] MEDS: Apixaban 2.5 MG TAB PO SCH ×2 (08:51→20:51)
[2022-02-19] MEDS: Ascorbic Acid 500 mg Chewable Tablet PO SCH ×2 (08:51→20:51)
[2022-02-19] MEDS: Amlodipine 10 MG TAB PO SCH (08:51)
[2022-02-19] MEDS: Ferrous Sulfate 325 MG TAB PO SCH ×2 (08:51→20:51)
[2022-02-19] MEDS: Senokot S 8.6-50 MG TAB PO SCH ×2 (08:52→20:55)
[2022-02-19] MEDS: Polyethylene Glycol 3350 17 GM Packet PO SCH (08:52)
[2022-02-19] MEDS: HYDROcodone/Acetaminophen 5/325 mg Tablet PO PRN ×2 (10:54→20:51)
[2022-02-19] MEDS: HumaLOG 300 UNITS/3 ML VIAL SC PRN (12:28)
[2022-02-19] MEDS ORDERED: Atorvastatin Calcium 10 MG TAB ONE (20:24)
[2022-02-19] MEDS: Mirtazapine 15 MG Soltab SL SCH (20:51)
[2022-02-19] MEDS: Atorvastatin Calcium 40 MG TAB PO SCH (20:51)
[2022-02-19] MEDS: traZODone HCl 50 MG TAB PO SCH (20:51)
[2022-02-20] MEDS: traMADol HCl 50 MG TAB PO SCH ×2 (04:28→15:23)
[2022-02-20] MEDS: HumaLOG 300 UNITS/3 ML VIAL SC PRN ×3 (06:05→17:16)
[2022-02-20] MEDS: Famotidine 20 MG TAB PO SCH (08:33)
[2022-02-20] MEDS: Cholecalciferol 1,000 UNITS (25 MCG) TAB PO SCH (08:33)
[2022-02-20] MEDS: Senokot S 8.6-50 MG TAB PO SCH ×2 (08:33→21:29)
[2022-02-20] MEDS: Polyethylene Glycol 3350 17 GM Packet PO SCH (08:33)
[2022-02-20] MEDS: Gabapentin 100 MG CAP PO SCH ×3 (08:34→21:28)
[2022-02-20] MEDS: Losartan 25 MG TAB PO SCH (08:35)
[2022-02-20] MEDS: Apixaban 2.5 MG TAB PO SCH ×2 (08:35→21:28)
[2022-02-20] MEDS: Amlodipine 10 MG TAB PO SCH (08:36)
[2022-02-20] MEDS: Metoprolol Tartrate 50 MG TAB PO SCH ×2 (08:36→21:28)
[2022-02-20] MEDS: Ascorbic Acid 500 mg Chewable Tablet PO SCH ×2 (08:36→21:28)
[2022-02-20] MEDS: cloNIDine 0.1 MG TAB PO SCH (08:36)
[2022-02-20] MEDS: Ferrous Sulfate 325 MG TAB PO SCH ×2 (08:36→21:30)
[2022-02-20] MEDS: Cyanocobalamin (Vitamin B-12) 1,000 MCG TAB PO SCH (08:36)
[2022-02-20] MEDS ORDERED: cloNIDine 0.1 MG TAB PO SCH (12:15)
[2022-02-20] MEDS ORDERED: Atorvastatin Calcium 40 MG TAB PO SCH (21:15)
[2022-02-20] MEDS: Atorvastatin Calcium 40 MG TAB PO SCH (21:28)
[2022-02-20] MEDS: Mirtazapine 15 MG Soltab SL SCH (21:28)
[2022-02-20] MEDS: guaiFENesin ER 600 MG TAB PO SCH (21:29)
[2022-02-20] MEDS: traZODone HCl 50 MG TAB PO SCH (21:29)
[2022-02-20] MEDS: cloNIDine 0.2 MG TAB PO SCH (21:30)
[2022-02-21] MEDS ORDERED: traMADol HCl 50 MG TAB ONE (03:25)
[2022-02-21] MEDS: traMADol HCl 50 MG TAB PO SCH ×2 (04:49→15:23)
[2022-02-21] MEDS: HumaLOG 300 UNITS/3 ML VIAL SC PRN ×3 (04:50→17:09)
[2022-02-21 06:16] LABS: Anion Gap 16 mmol/L (10-20); BUN (Urea Nitrogen) 41 mg/dL (9.8-20.1); Calc. Creatinine Clearance 29 mL/min (70-130); Calcium 8.1 mg/dL (7.8-10.44); Carbon Dioxide 18 mmol/L (23-31); Chloride 111 mmol/L (98-107); Estimated GFR 31; Glucose 187 mg/dL (83-110); Potassium 5.3 mmol/L (3.5-5.1); Sodium 140 mmol/L (136-145)
[2022-02-21] MEDS: Polyethylene Glycol 3350 17 GM Packet PO SCH (09:24)
[2022-02-21] MEDS: Cyanocobalamin (Vitamin B-12) 1,000 MCG TAB PO SCH (09:24)
[2022-02-21] MEDS: cloNIDine 0.2 MG TAB PO SCH ×2 (09:24→21:44)
[2022-02-21] MEDS: Ferrous Sulfate 325 MG TAB PO SCH ×2 (09:24→21:43)
[2022-02-21] MEDS: Senokot S 8.6-50 MG TAB PO SCH ×2 (09:25→22:05)
[2022-02-21] MEDS: Metoprolol Tartrate 50 MG TAB PO SCH ×2 (09:25→21:44)
[2022-02-21] MEDS: Famotidine 20 MG TAB PO SCH (09:25)
[2022-02-21] MEDS: Apixaban 2.5 MG TAB PO SCH ×2 (09:25→21:44)
[2022-02-21] MEDS: guaiFENesin ER 600 MG TAB PO SCH ×2 (09:25→21:44)
[2022-02-21] MEDS: Ascorbic Acid 500 mg Chewable Tablet PO SCH ×2 (09:25→21:43)
[2022-02-21] MEDS: Cholecalciferol 1,000 UNITS (25 MCG) TAB PO SCH (09:26)
[2022-02-21] MEDS: Gabapentin 100 MG CAP PO SCH ×3 (09:26→21:45)
[2022-02-21] MEDS: Amlodipine 10 MG TAB PO SCH (09:27)
[2022-02-21 09:51] LABS: #Basophils 0.1 thou/uL (0.0-0.2); #Eosinphils 0.3 thou/uL (0.0-0.7); #Lymphocytes 0.8 thou/uL (1.20-3.40); #Monocytes 0.7 thou/uL (0.11-0.59); #Neutrophils 5.6 thou/uL (1.40-6.50); %Basophils 1.2 % (0.0-1.0); %Eosinophils 3.7 % (0.0-10.0); %Lymphocytes 10.4 % (21.0-51.0); %Monocytes 9.9 % (0.0-10.0); %Neutrophils 74.8 % (42.0-75.0); Hemoglobin 8.2 g/dL (12.0-16.0); Mean Corpuscular HGB CONC 30.3 g/dL (32.0-36.0); Mean Corpuscular Hemoglobin 29.7 pg (27.0-31.0); Mean Corpuscular Volume 98.1 fL (78.0-98.0); Platelet Count 281 thou/uL (130-400); Red Blood Cell (RBC) Count 2.75 mill/uL (4.20-5.40); White Blood Cell (WBC) Count 7.4 thou/uL (4.8-10.8)
[2022-02-21] MEDS: Losartan 25 MG TAB PO SCH (14:43)
[2022-02-21] MEDS: Mirtazapine 15 MG Soltab SL SCH (21:44)
[2022-02-21] MEDS: Atorvastatin Calcium 40 MG TAB PO SCH (21:44)
[2022-02-21] MEDS: traZODone HCl 50 MG TAB PO SCH (21:44)
[2022-02-22] MEDS: traMADol HCl 50 MG TAB PO SCH ×2 (04:56→15:28)
[2022-02-22 06:10] LABS: Anion Gap 15 mmol/L (10-20); BUN (Urea Nitrogen) 39 mg/dL (9.8-20.1); Calc. Creatinine Clearance 30 mL/min (70-130); Calcium 8.2 mg/dL (7.8-10.44); Carbon Dioxide 21 mmol/L (23-31); Chloride 108 mmol/L (98-107); Estimated GFR 32; Glucose 201 mg/dL (83-110); Potassium 4.5 mmol/L (3.5-5.1); Sodium 139 mmol/L (136-145)
[2022-02-22] MEDS: HumaLOG 300 UNITS/3 ML VIAL SC PRN ×3 (06:16→17:29)
[2022-02-22] MEDS: Ascorbic Acid 500 mg Chewable Tablet PO SCH ×2 (08:28→21:12)
[2022-02-22] MEDS: Famotidine 20 MG TAB PO SCH (08:28)
[2022-02-22] MEDS: Cyanocobalamin (Vitamin B-12) 1,000 MCG TAB PO SCH (08:29)
[2022-02-22] MEDS: Senokot S 8.6-50 MG TAB PO SCH ×2 (08:29→21:12)
[2022-02-22] MEDS: Ferrous Sulfate 325 MG TAB PO SCH ×2 (08:29→21:12)
[2022-02-22] MEDS: Polyethylene Glycol 3350 17 GM Packet PO SCH ×2 (08:29→08:39)
[2022-02-22] MEDS: Losartan 25 MG TAB PO SCH (08:29)
[2022-02-22] MEDS: Amlodipine 10 MG TAB PO SCH (08:29)
[2022-02-22] MEDS: Apixaban 2.5 MG TAB PO SCH ×2 (08:29→21:12)
[2022-02-22] MEDS: Gabapentin 100 MG CAP PO SCH ×3 (08:30→21:12)
[2022-02-22] MEDS: cloNIDine 0.2 MG TAB PO SCH ×2 (08:30→21:13)
[2022-02-22] MEDS: Metoprolol Tartrate 50 MG TAB PO SCH ×2 (08:30→21:13)
[2022-02-22] MEDS: Cholecalciferol 1,000 UNITS (25 MCG) TAB PO SCH (08:31)
[2022-02-22] MEDS: guaiFENesin ER 600 MG TAB PO SCH ×2 (08:31→21:12)
[2022-02-22] MEDS: HYDROcodone/Acetaminophen 5/325 mg Tablet PO PRN ×2 (08:42→17:31)
[2022-02-22] MEDS: Mirtazapine 15 MG Soltab SL SCH (21:11)
[2022-02-22] MEDS: Atorvastatin Calcium 40 MG TAB PO SCH (21:12)
[2022-02-22] MEDS: traZODone HCl 50 MG TAB PO SCH (21:12)
[2022-02-23] MEDS: traMADol HCl 50 MG TAB PO SCH ×2 (04:45→15:22)
[2022-02-23] MEDS: HumaLOG 300 UNITS/3 ML VIAL SC PRN ×2 (05:33→12:43)
[2022-02-23] MEDS: Ferrous Sulfate 325 MG TAB PO SCH ×2 (08:14→20:42)
[2022-02-23] MEDS: HYDROcodone/Acetaminophen 5/325 mg Tablet PO PRN ×2 (08:14→20:44)
[2022-02-23] MEDS: Senokot S 8.6-50 MG TAB PO SCH ×2 (08:14→20:42)
[2022-02-23] MEDS: Apixaban 2.5 MG TAB PO SCH ×2 (08:14→20:42)
[2022-02-23] MEDS: guaiFENesin ER 600 MG TAB PO SCH ×2 (08:14→20:42)
[2022-02-23] MEDS: Ascorbic Acid 500 mg Chewable Tablet PO SCH ×2 (08:14→20:42)
[2022-02-23] MEDS: Cyanocobalamin (Vitamin B-12) 1,000 MCG TAB PO SCH (08:14)
[2022-02-23] MEDS: Cholecalciferol 1,000 UNITS (25 MCG) TAB PO SCH (08:17)
[2022-02-23] MEDS: Famotidine 20 MG TAB PO SCH (08:17)
[2022-02-23] MEDS: Polyethylene Glycol 3350 17 GM Packet PO SCH (08:17)
[2022-02-23] MEDS: Metoprolol Tartrate 50 MG TAB PO SCH ×2 (08:17→20:41)
[2022-02-23] MEDS: Losartan 25 MG TAB PO SCH (08:18)
[2022-02-23] MEDS: Amlodipine 10 MG TAB PO SCH (08:18)
[2022-02-23] MEDS: Gabapentin 100 MG CAP PO SCH ×3 (08:18→20:42)
[2022-02-23] MEDS: cloNIDine 0.2 MG TAB PO SCH ×2 (08:19→20:42)
[2022-02-23] MEDS: Atorvastatin Calcium 40 MG TAB PO SCH (20:41)
[2022-02-23] MEDS: traZODone HCl 50 MG TAB PO SCH (20:42)
[2022-02-23] MEDS: Mirtazapine 15 MG Soltab SL SCH (20:42)
[2022-02-24] MEDS: traMADol HCl 50 MG TAB PO SCH ×2 (04:38→16:14)
[2022-02-24] MEDS: HumaLOG 300 UNITS/3 ML VIAL SC PRN ×2 (06:32→12:04)
[2022-02-24] MEDS: Polyethylene Glycol 3350 17 GM Packet PO SCH (08:16)
[2022-02-24] MEDS: Ferrous Sulfate 325 MG TAB PO SCH ×2 (08:17→20:47)
[2022-02-24] MEDS: Gabapentin 100 MG CAP PO SCH ×3 (08:18→20:46)
[2022-02-24] MEDS: Famotidine 20 MG TAB PO SCH (08:27)
[2022-02-24] MEDS: Cyanocobalamin (Vitamin B-12) 1,000 MCG TAB PO SCH (08:27)
[2022-02-24] MEDS: Cholecalciferol 1,000 UNITS (25 MCG) TAB PO SCH (08:28)
[2022-02-24] MEDS: cloNIDine 0.2 MG TAB PO SCH ×2 (08:32→20:47)
[2022-02-24] MEDS: Senokot S 8.6-50 MG TAB PO SCH ×2 (08:32→20:47)
[2022-02-24] MEDS: Metoprolol Tartrate 50 MG TAB PO SCH ×2 (08:32→20:47)
[2022-02-24] MEDS: Amlodipine 10 MG TAB PO SCH (08:32)
[2022-02-24] MEDS: Apixaban 2.5 MG TAB PO SCH ×2 (08:32→20:47)
[2022-02-24] MEDS: guaiFENesin ER 600 MG TAB PO SCH ×2 (08:32→20:47)
[2022-02-24] MEDS: Losartan 25 MG TAB PO SCH (08:33)
[2022-02-24] MEDS: Ascorbic Acid 500 mg Chewable Tablet PO SCH ×2 (08:33→20:47)
[2022-02-24] MEDS: Atorvastatin Calcium 40 MG TAB PO SCH (20:47)
[2022-02-24] MEDS: traZODone HCl 50 MG TAB PO SCH (20:47)
[2022-02-24] MEDS: Mirtazapine 15 MG Soltab SL SCH (20:47)
[2022-02-24] MEDS: HYDROcodone/Acetaminophen 5/325 mg Tablet PO PRN (20:49)
[2022-02-25] MEDS: traMADol HCl 50 MG TAB PO SCH ×2 (04:52→15:10)
[2022-02-25] MEDS: Metoprolol Tartrate 50 MG TAB PO SCH ×2 (07:35→20:49)
[2022-02-25] MEDS: Amlodipine 10 MG TAB PO SCH (07:35)
[2022-02-25] MEDS: Losartan 25 MG TAB PO SCH (07:36)
[2022-02-25] MEDS: Polyethylene Glycol 3350 17 GM Packet PO SCH (07:37)
[2022-02-25] MEDS: cloNIDine 0.2 MG TAB PO SCH ×2 (07:37→20:49)
[2022-02-25] MEDS: Gabapentin 100 MG CAP PO SCH ×3 (10:19→20:48)
[2022-02-25] MEDS: Famotidine 20 MG TAB PO SCH (10:19)
[2022-02-25] MEDS: Ascorbic Acid 500 mg Chewable Tablet PO SCH ×2 (10:19→20:49)
[2022-02-25] MEDS: Cyanocobalamin (Vitamin B-12) 1,000 MCG TAB PO SCH (10:19)
[2022-02-25] MEDS: guaiFENesin ER 600 MG TAB PO SCH (10:19)
[2022-02-25] MEDS: Apixaban 2.5 MG TAB PO SCH ×2 (10:19→20:49)
[2022-02-25] MEDS: Cholecalciferol 1,000 UNITS (25 MCG) TAB PO SCH (10:19)
[2022-02-25] MEDS: Senokot S 8.6-50 MG TAB PO SCH ×2 (10:20→20:49)
[2022-02-25] MEDS: Ferrous Sulfate 325 MG TAB PO SCH (10:20)
[2022-02-25] MEDS: HumaLOG 300 UNITS/3 ML VIAL SC PRN (11:08)
[2022-02-25] MEDS: HYDROcodone/Acetaminophen 5/325 mg Tablet PO PRN (13:17)
[2022-02-25] MEDS ORDERED: guaiFENesin ER 600 MG TAB PO PRN (15:19)
[2022-02-25] MEDS ORDERED: Milk Of Magnesia 30 ML UDCUP PO PRN (16:55)
[2022-02-25] MEDS ORDERED: Methocarbamol 500 MG TAB PO PRN (16:57)
[2022-02-25] MEDS: Atorvastatin Calcium 40 MG TAB PO SCH (20:48)
[2022-02-25] MEDS: Mirtazapine 15 MG Soltab SL SCH (20:48)
[2022-02-25] MEDS: traZODone HCl 50 MG TAB PO SCH (20:49)
[2022-02-26] MEDS: traMADol HCl 50 MG TAB PO SCH ×2 (05:09→15:48)
[2022-02-26] MEDS: Gabapentin 100 MG CAP PO SCH ×3 (08:28→20:32)
[2022-02-26] MEDS: Senokot S 8.6-50 MG TAB PO SCH ×2 (08:29→20:31)
[2022-02-26] MEDS: Cyanocobalamin (Vitamin B-12) 1,000 MCG TAB PO SCH (08:29)
[2022-02-26] MEDS: Famotidine 20 MG TAB PO SCH (08:29)
[2022-02-26] MEDS: Metoprolol Tartrate 50 MG TAB PO SCH ×2 (08:30→20:31)
[2022-02-26] MEDS: Amlodipine 10 MG TAB PO SCH (08:30)
[2022-02-26] MEDS: cloNIDine 0.2 MG TAB PO SCH ×2 (08:30→20:32)
[2022-02-26] MEDS: Ferrous Sulfate 325 MG TAB PO SCH (08:30)
[2022-02-26] MEDS: Losartan 25 MG TAB PO SCH (08:30)
[2022-02-26] MEDS: Apixaban 2.5 MG TAB PO SCH ×2 (08:30→20:32)
[2022-02-26] MEDS: Ascorbic Acid 500 mg Chewable Tablet PO SCH ×2 (08:30→20:32)
[2022-02-26] MEDS: Cholecalciferol 1,000 UNITS (25 MCG) TAB PO SCH (08:30)
[2022-02-26] MEDS: Polyethylene Glycol 3350 17 GM Packet PO SCH (08:32)
[2022-02-26] MEDS: HYDROcodone/Acetaminophen 5/325 mg Tablet PO PRN (09:49)
[2022-02-26] MEDS: HumaLOG 300 UNITS/3 ML VIAL SC PRN (11:03)
[2022-02-26] MEDS: Atorvastatin Calcium 40 MG TAB PO SCH (20:31)
[2022-02-26] MEDS: traZODone HCl 50 MG TAB PO SCH (20:32)
[2022-02-26] MEDS: Mirtazapine 15 MG Soltab SL SCH (20:32)
[2022-02-27] MEDS: traMADol HCl 50 MG TAB PO SCH ×2 (03:18→15:11)
[2022-02-27] MEDS: HumaLOG 300 UNITS/3 ML VIAL SC PRN ×2 (05:40→11:46)
[2022-02-27] MEDS: Amlodipine 10 MG TAB PO SCH (08:26)
[2022-02-27] MEDS: Cyanocobalamin (Vitamin B-12) 1,000 MCG TAB PO SCH (08:26)
[2022-02-27] MEDS: Cholecalciferol 1,000 UNITS (25 MCG) TAB PO SCH (08:26)
[2022-02-27] MEDS: Ascorbic Acid 500 mg Chewable Tablet PO SCH ×2 (08:26→20:15)
[2022-02-27] MEDS: Losartan 25 MG TAB PO SCH (08:26)
[2022-02-27] MEDS: Empagliflozin 10 MG TAB PO SCH (08:26)
[2022-02-27] MEDS: Apixaban 2.5 MG TAB PO SCH ×2 (08:27→20:15)
[2022-02-27] MEDS: cloNIDine 0.2 MG TAB PO SCH ×2 (08:27→20:15)
[2022-02-27] MEDS: Ferrous Sulfate 325 MG TAB PO SCH (08:27)
[2022-02-27] MEDS: Famotidine 20 MG TAB PO SCH (08:27)
[2022-02-27] MEDS: Metoprolol Tartrate 50 MG TAB PO SCH ×2 (08:27→20:15)
[2022-02-27] MEDS: Gabapentin 100 MG CAP PO SCH ×3 (08:27→20:16)
[2022-02-27] MEDS: Polyethylene Glycol 3350 17 GM Packet PO SCH (08:28)
[2022-02-27] MEDS: Senokot S 8.6-50 MG TAB PO SCH ×2 (08:28→20:15)
[2022-02-27 10:09] LABS: Hemoglobin 8.6 g/dL (12.0-16.0); Mean Corpuscular Hemoglobin 29.9 pg (27.0-31.0); Mean Corpuscular Volume 99.6 fL (78.0-98.0); Mean Platelet Volume 6.6 fL (7.4-10.4); Platelet Count 309 thou/uL (130-400); RBC Distribution Width 15.9 % (11.5-14.5); Red Blood Cell (RBC) Count 2.86 mill/uL (4.20-5.40); White Blood Cell (WBC) Count 8.1 thou/uL (4.8-10.8)
[2022-02-27 10:21] LABS: Anion Gap 16 mmol/L (10-20); BUN (Urea Nitrogen) 37 mg/dL (9.8-20.1); Calc. Creatinine Clearance 30 mL/min (70-130); Calcium 8.3 mg/dL (7.8-10.44); Carbon Dioxide 19 mmol/L (23-31); Chloride 109 mmol/L (98-107); Estimated GFR 32; Glucose 185 mg/dL (83-110); Magnesium 1.8 mg/dL (1.6-2.6); Potassium 4.7 mmol/L (3.5-5.1); Sodium 139 mmol/L (136-145)
[2022-02-27 10:37] LABS: Thyroid Stimulating Hormone 1.9508 uIU/mL (0.35-4.94)
[2022-02-27 17:38] LABS: Ferritin 117.38 ng/mL (10-291)
[2022-02-27] MEDS: Atorvastatin Calcium 40 MG TAB PO SCH (20:15)
[2022-02-27] MEDS: Mirtazapine 15 MG Soltab SL SCH (20:15)
[2022-02-27] MEDS: traZODone HCl 50 MG TAB PO SCH (20:15)
[2022-02-27] MEDS: HYDROcodone/Acetaminophen 5/325 mg Tablet PO PRN (20:16)
[2022-02-27 20:51] VITALS: BMI 24.9
[2022-02-28] MEDS: traMADol HCl 50 MG TAB PO SCH ×2 (04:30→15:27)
[2022-02-28] MEDS: HumaLOG 300 UNITS/3 ML VIAL SC PRN (05:55)
[2022-02-28] MEDS: Losartan 25 MG TAB PO SCH (08:46)
[2022-02-28] MEDS: Ferrous Sulfate 325 MG TAB PO SCH (08:46)
[2022-02-28] MEDS: Cholecalciferol 1,000 UNITS (25 MCG) TAB PO SCH (08:46)
[2022-02-28] MEDS: Senokot S 8.6-50 MG TAB PO SCH ×2 (08:46→20:26)
[2022-02-28] MEDS: Cyanocobalamin (Vitamin B-12) 1,000 MCG TAB PO SCH (08:47)
[2022-02-28] MEDS: Empagliflozin 10 MG TAB PO SCH (08:47)
[2022-02-28] MEDS: Apixaban 2.5 MG TAB PO SCH ×2 (08:47→20:25)
[2022-02-28] MEDS: Gabapentin 100 MG CAP PO SCH ×3 (08:47→20:24)
[2022-02-28] MEDS: Ascorbic Acid 500 mg Chewable Tablet PO SCH ×2 (08:47→20:26)
[2022-02-28] MEDS: Metoprolol Tartrate 50 MG TAB PO SCH ×2 (08:47→20:24)
[2022-02-28] MEDS: cloNIDine 0.2 MG TAB PO SCH ×2 (08:47→20:25)
[2022-02-28] MEDS: Amlodipine 10 MG TAB PO SCH (08:47)
[2022-02-28] MEDS: Famotidine 20 MG TAB PO SCH (08:47)
[2022-02-28] MEDS: Polyethylene Glycol 3350 17 GM Packet PO SCH (08:49)
[2022-02-28] MEDS: Mirtazapine 15 MG Soltab SL SCH (20:24)
[2022-02-28] MEDS: traZODone HCl 50 MG TAB PO SCH (20:24)
[2022-02-28] MEDS: HYDROcodone/Acetaminophen 5/325 mg Tablet PO PRN (20:25)
[2022-02-28] MEDS: Atorvastatin Calcium 40 MG TAB PO SCH (20:26)
[2022-03-01] MEDS: traMADol HCl 50 MG TAB PO SCH ×2 (04:20→15:40)
[2022-03-01] MEDS: Cholecalciferol 1,000 UNITS (25 MCG) TAB PO SCH (08:50)
[2022-03-01] MEDS: Ferrous Sulfate 325 MG TAB PO SCH (08:51)
[2022-03-01] MEDS: cloNIDine 0.2 MG TAB PO SCH ×2 (08:51→20:59)
[2022-03-01] MEDS: Ascorbic Acid 500 mg Chewable Tablet PO SCH ×2 (08:51→21:00)
[2022-03-01] MEDS: Famotidine 20 MG TAB PO SCH (08:51)
[2022-03-01] MEDS: Gabapentin 100 MG CAP PO SCH ×3 (08:52→20:58)
[2022-03-01] MEDS: Amlodipine 10 MG TAB PO SCH (08:52)
[2022-03-01] MEDS: Empagliflozin 10 MG TAB PO SCH (08:53)
[2022-03-01] MEDS: Senokot S 8.6-50 MG TAB PO SCH ×2 (08:53→20:58)
[2022-03-01] MEDS: Apixaban 2.5 MG TAB PO SCH ×2 (08:54→20:59)
[2022-03-01] MEDS: Metoprolol Tartrate 50 MG TAB PO SCH ×2 (08:54→20:58)
[2022-03-01] MEDS: Cyanocobalamin (Vitamin B-12) 1,000 MCG TAB PO SCH (08:54)
[2022-03-01] MEDS: Polyethylene Glycol 3350 17 GM Packet PO SCH (08:55)
[2022-03-01] MEDS ORDERED: Losartan 25 MG TAB PO SCH (09:00)
[2022-03-01] MEDS: HYDROcodone/Acetaminophen 5/325 mg Tablet PO PRN (10:20)
[2022-03-01] MEDS: Atorvastatin Calcium 40 MG TAB PO SCH (20:59)
[2022-03-01] MEDS: Mirtazapine 15 MG Soltab SL SCH (20:59)
[2022-03-01] MEDS: traZODone HCl 50 MG TAB PO SCH (21:00)
[2022-03-02] MEDS: traMADol HCl 50 MG TAB PO SCH ×3 (04:30→21:01)
[2022-03-02] MEDS: HumaLOG 300 UNITS/3 ML VIAL SC PRN ×2 (05:42→11:45)
[2022-03-02] MEDS: Apixaban 2.5 MG TAB PO SCH ×2 (08:22→20:50)
[2022-03-02] MEDS: Famotidine 20 MG TAB PO SCH (08:22)
[2022-03-02] MEDS: Polyethylene Glycol 3350 17 GM Packet PO SCH (08:22)
[2022-03-02] MEDS: Ascorbic Acid 500 mg Chewable Tablet PO SCH ×2 (08:22→20:48)
[2022-03-02] MEDS: Senokot S 8.6-50 MG TAB PO SCH ×2 (08:22→20:49)
[2022-03-02] MEDS: Gabapentin 100 MG CAP PO SCH ×3 (08:22→20:50)
[2022-03-02] MEDS: Losartan Potassium 50 MG TAB PO SCH (08:22)
[2022-03-02] MEDS: Amlodipine 10 MG TAB PO SCH (08:23)
[2022-03-02] MEDS: Ferrous Sulfate 325 MG TAB PO SCH (08:23)
[2022-03-02] MEDS: cloNIDine 0.2 MG TAB PO SCH ×2 (08:24→20:48)
[2022-03-02] MEDS: HYDROcodone/Acetaminophen 5/325 mg Tablet PO PRN (08:24)
[2022-03-02] MEDS: Cyanocobalamin (Vitamin B-12) 1,000 MCG TAB PO SCH (08:24)
[2022-03-02] MEDS: Cholecalciferol 1,000 UNITS (25 MCG) TAB PO SCH (08:24)
[2022-03-02] MEDS: Empagliflozin 10 MG TAB PO SCH (08:25)
[2022-03-02] MEDS: Metoprolol Tartrate 50 MG TAB PO SCH ×2 (08:25→20:48)
[2022-03-02] MEDS: Atorvastatin Calcium 40 MG TAB PO SCH (20:48)
[2022-03-02] MEDS: Mirtazapine 15 MG Soltab SL SCH (20:48)
[2022-03-02] MEDS: traZODone HCl 50 MG TAB PO SCH (20:48)
[2022-03-03] MEDS: Cholecalciferol 1,000 UNITS (25 MCG) TAB PO SCH (08:19)
[2022-03-03] MEDS: Metoprolol Tartrate 50 MG TAB PO SCH ×2 (08:19→21:00)
[2022-03-03] MEDS: Apixaban 2.5 MG TAB PO SCH ×2 (08:19→20:59)
[2022-03-03] MEDS: Amlodipine 10 MG TAB PO SCH (08:20)
[2022-03-03] MEDS: Senokot S 8.6-50 MG TAB PO SCH ×2 (08:20→21:00)
[2022-03-03] MEDS: Gabapentin 100 MG CAP PO SCH ×3 (08:21→20:59)
[2022-03-03] MEDS: Ascorbic Acid 500 mg Chewable Tablet PO SCH ×2 (08:21→20:59)
[2022-03-03] MEDS: Losartan Potassium 50 MG TAB PO SCH (08:21)
[2022-03-03] MEDS: Famotidine 20 MG TAB PO SCH (08:21)
[2022-03-03] MEDS: Cyanocobalamin (Vitamin B-12) 1,000 MCG TAB PO SCH (08:21)
[2022-03-03] MEDS: Ferrous Sulfate 325 MG TAB PO SCH (08:22)
[2022-03-03] MEDS: cloNIDine 0.2 MG TAB PO SCH ×2 (08:22→20:59)
[2022-03-03] MEDS: Empagliflozin 10 MG TAB PO SCH (08:23)
[2022-03-03] MEDS: Polyethylene Glycol 3350 17 GM Packet PO SCH (08:23)
[2022-03-03] MEDS: HYDROcodone/Acetaminophen 5/325 mg Tablet PO PRN (08:38)
[2022-03-03] MEDS: HumaLOG 300 UNITS/3 ML VIAL SC PRN (12:06)
[2022-03-03] MEDS: traMADol HCl 50 MG TAB PO SCH (15:17)
[2022-03-03] MEDS: traZODone HCl 50 MG TAB PO SCH (20:59)
[2022-03-03] MEDS: Mirtazapine 15 MG Soltab SL SCH (20:59)
[2022-03-03] MEDS: Atorvastatin Calcium 40 MG TAB PO SCH (20:59)
[2022-03-04] MEDS: traMADol HCl 50 MG TAB PO SCH ×2 (05:53→15:33)
[2022-03-04] MEDS: Losartan Potassium 50 MG TAB PO SCH (08:15)
[2022-03-04] MEDS: Apixaban 2.5 MG TAB PO SCH ×2 (08:15→20:17)
[2022-03-04] MEDS: Gabapentin 100 MG CAP PO SCH ×3 (08:15→20:18)
[2022-03-04] MEDS: Famotidine 20 MG TAB PO SCH (08:16)
[2022-03-04] MEDS: Empagliflozin 10 MG TAB PO SCH (08:16)
[2022-03-04] MEDS: Ascorbic Acid 500 mg Chewable Tablet PO SCH ×2 (08:16→20:19)
[2022-03-04] MEDS: Cholecalciferol 1,000 UNITS (25 MCG) TAB PO SCH (08:16)
[2022-03-04] MEDS: Amlodipine 10 MG TAB PO SCH (08:16)
[2022-03-04] MEDS: Ferrous Sulfate 325 MG TAB PO SCH (08:16)
[2022-03-04] MEDS: Metoprolol Tartrate 50 MG TAB PO SCH ×2 (08:17→20:19)
[2022-03-04] MEDS: cloNIDine 0.2 MG TAB PO SCH ×2 (08:17→20:19)
[2022-03-04] MEDS: Cyanocobalamin (Vitamin B-12) 1,000 MCG TAB PO SCH (08:17)
[2022-03-04] MEDS: Senokot S 8.6-50 MG TAB PO SCH ×2 (08:18→20:18)
[2022-03-04] MEDS: Polyethylene Glycol 3350 17 GM Packet PO SCH (08:18)
[2022-03-04] MEDS: HYDROcodone/Acetaminophen 5/325 mg Tablet PO PRN (08:25)
[2022-03-04] MEDS: HumaLOG 300 UNITS/3 ML VIAL SC PRN (12:24)
[2022-03-04] MEDS: hydrALAZINE 25 MG TAB PO SCH ×2 (15:33→20:19)
[2022-03-04] MEDS: Mirtazapine 15 MG Soltab SL SCH (20:17)
[2022-03-04] MEDS: Atorvastatin Calcium 40 MG TAB PO SCH (20:18)
[2022-03-04] MEDS: traZODone HCl 50 MG TAB PO SCH (20:19)
[2022-03-05] MEDS: traMADol HCl 50 MG TAB PO SCH ×2 (06:11→16:48)
[2022-03-05 06:26] LABS: #Basophils 0.1 thou/uL (0.0-0.2); #Eosinphils 0.3 thou/uL (0.0-0.7); #Lymphocytes 1.8 thou/uL (1.20-3.40); #Monocytes 0.9 thou/uL (0.11-0.59); %Eosinophils 2.7 % (0.0-10.0); %Lymphocytes 16.2 % (21.0-51.0); %Monocytes 8.2 % (0.0-10.0); %Neutrophils 71.9 % (42.0-75.0); Hemoglobin 9.3 g/dL (12.0-16.0); Mean Corpuscular Hemoglobin 29.7 pg (27.0-31.0); Mean Platelet Volume 6.8 fL (7.4-10.4); Platelet Count 283 thou/uL (130-400); Red Blood Cell (RBC) Count 3.15 mill/uL (4.20-5.40); White Blood Cell (WBC) Count 11.1 thou/uL (4.8-10.8)
[2022-03-05 06:31] LABS: Anion Gap 20 mmol/L (10-20); BUN (Urea Nitrogen) 45 mg/dL (9.8-20.1); Calc. Creatinine Clearance 27 mL/min (70-130); Calcium 8.3 mg/dL (7.8-10.44); Carbon Dioxide 16 mmol/L (23-31); Chloride 111 mmol/L (98-107); Estimated GFR 29; Glucose 103 mg/dL (83-110); Potassium 4.8 mmol/L (3.5-5.1); Sodium 142 mmol/L (136-145)
[2022-03-05] MEDS: Cyanocobalamin (Vitamin B-12) 1,000 MCG TAB PO SCH (08:27)
[2022-03-05] MEDS: Cholecalciferol 1,000 UNITS (25 MCG) TAB PO SCH (08:27)
[2022-03-05] MEDS: Gabapentin 100 MG CAP PO SCH ×3 (08:28→20:32)
[2022-03-05] MEDS: Ferrous Sulfate 325 MG TAB PO SCH (08:28)
[2022-03-05] MEDS: Polyethylene Glycol 3350 17 GM Packet PO SCH (08:29)
[2022-03-05] MEDS: Famotidine 20 MG TAB PO SCH (08:30)
[2022-03-05] MEDS: Ascorbic Acid 500 mg Chewable Tablet PO SCH ×2 (08:30→20:35)
[2022-03-05] MEDS: Senokot S 8.6-50 MG TAB PO SCH ×2 (08:30→20:34)
[2022-03-05] MEDS: Apixaban 2.5 MG TAB PO SCH ×2 (08:30→20:35)
[2022-03-05] MEDS: Empagliflozin 10 MG TAB PO SCH (08:30)
[2022-03-05] MEDS: Losartan Potassium 50 MG TAB PO SCH (08:42)
[2022-03-05] MEDS: Amlodipine 10 MG TAB PO SCH (08:42)
[2022-03-05] MEDS: Metoprolol Tartrate 50 MG TAB PO SCH ×2 (08:43→20:33)
[2022-03-05] MEDS: hydrALAZINE 25 MG TAB PO SCH ×3 (08:43→20:34)
[2022-03-05] MEDS: cloNIDine 0.2 MG TAB PO SCH ×2 (08:43→20:35)
[2022-03-05] MEDS ORDERED: hydrALAZINE 25 MG TAB PO SCH ×2 (09:00→09:15)
[2022-03-05] MEDS ORDERED: Acetaminophen 500 MG TAB PO PRN (10:00)
[2022-03-05] MEDS: HumaLOG 300 UNITS/3 ML VIAL SC PRN (12:07)
[2022-03-05 20:26] LABS: Bilirubin Negative (Negative); Blood, Urine Negative (Negative); Clarity Clear (Clear); Glucose, Urine (Dipstick) 250 mg/dL (Negative); Ketone, Urine Trace mg/dL (Negative); Leukocyte Negative (Negative); Nitrite Negative (Negative); Protein, Urine (Dipstick) 100 mg/dL (Neg-Trace); Specific Gravity, Urine 1.025 (1.005-1.030); Urobilinogen 0.2 mg/dL (Less than 2); pH, Urine 5.5 (5.0-9.0)
[2022-03-05 20:31] LABS: Urine Culture Reflex No No
[2022-03-05] MEDS: Mirtazapine 15 MG Soltab SL SCH (20:32)
[2022-03-05] MEDS: Atorvastatin Calcium 40 MG TAB PO SCH (20:33)
[2022-03-05] MEDS: traZODone HCl 50 MG TAB PO SCH (20:34)
[2022-03-05 20:42] LABS: RBC/HPF 0-3 HPF (0-3); Squamous Epithelial 0-3 HPF (0-3)
[2022-03-06] MEDS: traMADol HCl 50 MG TAB PO SCH ×2 (04:54→15:20)
[2022-03-06 06:29] LABS: #Basophils 0.1 thou/uL (0.0-0.2); #Eosinphils 0.2 thou/uL (0.0-0.7); #Lymphocytes 1.6 thou/uL (1.20-3.40); #Monocytes 0.8 thou/uL (0.11-0.59); #Neutrophils 8.9 thou/uL (1.40-6.50); %Basophils 0.8 % (0.0-1.0); %Eosinophils 1.9 % (0.0-10.0); %Lymphocytes 13.4 % (21.0-51.0); %Monocytes 6.8 % (0.0-10.0); %Neutrophils 77.1 % (42.0-75.0); Hemoglobin 9.4 g/dL (12.0-16.0); Mean Corpuscular HGB CONC 29.7 g/dL (32.0-36.0); Mean Corpuscular Hemoglobin 29.6 pg (27.0-31.0); Mean Corpuscular Volume 99.5 fL (78.0-98.0); Mean Platelet Volume 6.8 fL (7.4-10.4); Platelet Count 265 thou/uL (130-400); RBC Distribution Width 15.3 % (11.5-14.5); Red Blood Cell (RBC) Count 3.19 mill/uL (4.20-5.40); White Blood Cell (WBC) Count 11.6 thou/uL (4.8-10.8)
[2022-03-06 06:36] LABS: Anion Gap 20 mmol/L (10-20); BUN (Urea Nitrogen) 50 mg/dL (9.8-20.1); Calc. Creatinine Clearance 25 mL/min (70-130); Calcium 8.3 mg/dL (7.8-10.44); Carbon Dioxide 15 mmol/L (23-31); Chloride 112 mmol/L (98-107); Estimated GFR 26; Glucose 123 mg/dL (83-110); Potassium 5.1 mmol/L (3.5-5.1); Sodium 142 mmol/L (136-145)
[2022-03-06 07:38] VITALS: TEMP 98.9
[2022-03-06] MEDS: Ascorbic Acid 500 mg Chewable Tablet PO SCH (08:21)
[2022-03-06] MEDS: Losartan Potassium 50 MG TAB PO SCH (08:21)
[2022-03-06] MEDS: Cholecalciferol 1,000 UNITS (25 MCG) TAB PO SCH (08:21)
[2022-03-06] MEDS: Famotidine 20 MG TAB PO SCH (08:21)
[2022-03-06] MEDS: cloNIDine 0.2 MG TAB PO SCH (08:22)
[2022-03-06] MEDS: Ferrous Sulfate 325 MG TAB PO SCH (08:22)
[2022-03-06] MEDS: hydrALAZINE 25 MG TAB PO SCH ×2 (08:22→15:19)
[2022-03-06] MEDS: Cyanocobalamin (Vitamin B-12) 1,000 MCG TAB PO SCH (08:22)
[2022-03-06] MEDS: Gabapentin 100 MG CAP PO SCH ×2 (08:23→15:21)
[2022-03-06] MEDS: Empagliflozin 10 MG TAB PO SCH (08:24)
[2022-03-06] MEDS: Metoprolol Tartrate 50 MG TAB PO SCH (08:24)
[2022-03-06] MEDS: Amlodipine 10 MG TAB PO SCH (08:24)
[2022-03-06] MEDS: Apixaban 2.5 MG TAB PO SCH (08:24)
[2022-03-06] MEDS: Senokot S 8.6-50 MG TAB PO SCH (08:25)
[2022-03-06] MEDS: Polyethylene Glycol 3350 17 GM Packet PO SCH (08:25)
[2022-03-06] MEDS ORDERED: cefTRIAXone\\ROCEPHIN 1 GM VIAL IM SCH (11:00)
[2022-03-06] MEDS ORDERED: Lidocaine 1% PF 5 ML VIAL FS SCH (12:45)
[2022-03-06] MEDS ORDERED: Sterile Water 10 ML VIAL FS SCH (13:15)
[2022-03-06 16:36] VITALS: BP 133/62
[2022-03-07] MEDS ORDERED: Lidocaine 1% PF 5 ML VIAL FS SCH (11:00)
== END 2022-03-06 16:22 | DRG 559 ==
LOC: NAV ACUTE 18:03
PROVIDERS: ADMIT Family Medicine; ATTEND Family Medicine
DX: S72.401D Unspecified fracture of lower end of right femur, subsequent encounter for closed fracture with routine healing (principal); J96.21 Acute and chronic respiratory failure with hypoxia; I50.40 Unspecified combined systolic (congestive) and diastolic (congestive) heart failure; N18.4 Chronic kidney disease, stage 4 (severe); I13.0 Hypertensive heart and chronic kidney disease with heart failure and stage 1 through stage 4 chronic kidney disease, or unspecified chronic kidney disease; N39.0 Urinary tract infection, site not specified; W19.XXXD Unspecified fall, subsequent encounter; G35 Multiple sclerosis; K21.9 Gastro-esophageal reflux disease without esophagitis; I25.10 Atherosclerotic heart disease of native coronary artery without angina pectoris; E11.22 Type 2 diabetes mellitus with diabetic chronic kidney disease; E78.5 Hyperlipidemia, unspecified; D63.1 Anemia in chronic kidney disease; I25.5 Ischemic cardiomyopathy; J44.9 Chronic obstructive pulmonary disease, unspecified; D50.9 Iron deficiency anemia, unspecified; R33.9 Retention of urine, unspecified; Z20.822 Contact with and (suspected) exposure to COVID-19; Z90.49 Acquired absence of other specified parts of digestive tract; Z90.710 Acquired absence of both cervix and uterus; Z95.5 Presence of coronary angioplasty implant and graft; Z98.890 Other specified postprocedural states; S42.201D Unspecified fracture of upper end of right humerus, subsequent encounter for fracture with routine healing
CPT/HCPCS: 36415; 36416; 80048; 80053; 81001; 82607; 82728; 83036; 83540; 83550; 83735; 84443; 85025; 85027; 87086; 94640; J0696; J1815; J7620; U0003; U0005